=== PATIENT | male | born 1950 | race Caucasian/White ===

== ENCOUNTER 2022-03-01 18:14 | Emergency (ER) | payer MEDICARE ==
[2022-03-01] MEDS ORDERED: HYDROcod/ACETAM 5/325 MG TABLET PO STA (19:41)
--- NOTE | 2022-03-01 19:42 | ED Physician Documentation ---
History of Present Illness - Stated complaint Stated Complaint: LEFT LEG/SHOULDER INJURY - Chief complaint Chief Complaint: Trauma Ext - History obtained from History obtained from: Patient - Additonal information Additional information: 71-year-old gentleman around 9:00 this morning took a fall down 6 stairs at home. He landed on the left side and hurt his shoulder, hip, and lower leg. He is sure he did not hit his head. No head injury, headache, loss of consciousness. Mostly what hurts is the shoulder and lower extremity. He is up-to-date on tetanus. He presents with his of 46 years. Review of Systems Constitutional: reports: Reviewed and negative Eyes: reports: Reviewed and negative Throat: reports: Reviewed and negative Respiratory: reports: Reviewed and negative PD PAST MEDICAL HISTORY - Present Medications Home Medications: Ambulatory Orders Medication Instructions Recorded Confirmed Oxycodone HCl/Acetaminophen 1 - 2 each PO Q6H PRN #14 tablet 03/01/22 [Percocet 5-325 mg Tablet] - Allergies Allergies/Adverse Reactions: Allergies Allergy/AdvReac Type Severity Reaction Status Date / Time hydralazine Allergy Unknown Verified 03/01/22 18:36 NSAIDS (Non-Steroidal Allergy Unknown Verified 03/01/22 18:36 Anti-Inflamma oxytetracycline Allergy Unknown Verified 03/01/22 18:36 [From Terramycin] PD ED PE NORMAL - Vitals Vital signs reviewed: Yes - General General: Alert and oriented X 3, No acute distress - HEENT HEENT: PERRL, EOMI - Neck Neck: Supple, no meningeal sign, No bony TTP - Extremities Extremities: Other (There is a skin tear on the anterior left moreira with some local surrounding tenderness. The hip is nontender but he does have some pain with internal and external rotation. The shoulder has mild tenderness to the humeral head but relatively full range of motion for any acute injury.) - Neuro Neuro: Alert and oriented X 3, Normal speech Eye Opening: Spontaneous Motor: Obeys Commands Verbal: Oriented GCS Score: 15 Results - Vitals Vitals: Vital Signs - 24 hr 03/01/22 03/01/22 18:29 21:44 Temperature 36.7 C Heart Rate 84 76 Respiratory 16 16 Rate Blood Pressure 154/56 H 164/100 H O2 Saturation 94 97 Oxygen O2 Source Room air Procedures - Laceration (location) Left moreira Length in cm: 3 Wound type: Irregular, Flap, Superficial Wound preparation: Irrigated copiously NS Skin layer closure: Dermabond, Steri strips Other: Tetanus UTD PD MEDICAL DECISION MAKING - ED course ED course: 71-year-old gentleman with left-sided musculoskeletal injuries after a fall downstairs. Looks like he has a left humeral fracture and he is placed in a sling for same. X-rays of the lower extremity appeared negative. He had a skin tear on the left leg that was irrigated and repaired with Dermabond and Steri- Strips. Pain was difficult to control here and had no help with hydrocodone, had some improvement with IM Dilaudid. Sent home with a prepack for Percocet. He was able to ambulate here with some difficulty but only a minor limp and did not need an aid such as a walker. Subsequent to release overread of XR felt that humeral head trauma was old. Attempted to contact pt by phone, no no answer. Given that he is focally tender there, would not exchange trouble shooter as he would benefit from immobilization for comfort as already done with sling and f/o with ortho for reeval. Departure - Departure Disposition: 01 Home, Self Care Clinical Impression: Closed fracture of left proximal humerus Qualifiers: Encounter type: initial encounter Fracture morphology: other fracture Fracture alignment: nondisplaced Qualified Code(s): S42.295A - Other nondisplaced fracture of upper end of left humerus, initial encounter for closed fracture Strain of left hip Qualifiers: Encounter type: initial encounter Qualified Code(s): S76.012A - Strain of muscle, fascia and tendon of left hip, initial encounter Skin tear of left lower leg without complication Qualifiers: Encounter type: initial encounter Qualified Code(s): S81.812A - Laceration without foreign body, left lower leg, initial encounter Fall down stairs Qualifiers: Encounter type: initial encounter Qualified Code(s): W10.8XXA - Fall (on) (from) other stairs and steps, initial encounter Condition: Good Record reviewed to determine appropriate education?: Yes Instructions: Humerus Fx, ED Sprain Hip, ED Avulsion Dermal Prescriptions: Oxycodone HCl/Acetaminophen [Percocet 5-325 mg Tablet] 1 - 2 each PO Q6H PRN #14 tablet PRN Reason: pain Comments: As discussed, it looks like you have a fracture in the proximal humerus, I do not see any fractures in the hip or the lower leg. You should follow-up with an orthopedist on return home within the week. Take the copy of the x-ray on CD with you to that appointment. Return for new or worsening symptoms. Sent a prescription for painkillers to the [facility] pharmacy located at the corner of [address] [facility] [address] [facility] and [address] here in [place]. It is right next to the hospital. I am prescribing a short course of narcotic pain medication for you. These are potentially dangerous and addictive medications that should be used carefully. These medications may constipate you. Take an cysr-rrm-evzebng stool softener (docusate) twice daily with plenty of water while taking these medications. If you go 24 hours without a bowel movement, take zsnu-gtz-bdtodim miralax, per package instructions. Do not drink or drive while taking these medications. If you received narcotic or sedating medications while in the emergency department, do not drive for 24 hours. Store this medication in a safe, secure place and out of reach of children. It is a violation of federal law to give or sell this medication to another person or to use in a manner other than prescribed. The ED will not refill narcotic prescriptions, including prescriptions lost or stolen. To dispose of unwanted medications: 1. [facility] at [address] [place] [address] in [place] has a medication drop box. They accept prescription medications (in pill form) Tuesday through Tuesday 9:00 a.m. to 5:00 p.m. 2. The [facility] at [place] [employer] accepts prescription medications (in pill form only) for disposal year round. Call for more information. 3. Contact the [facility] for the next [facility] sponsored prescription drug collection event. , [phone], or [phone]; Note that many narcotic pain relievers also contain Tylenol/acetaminophen. Please ensure that your total dose of acetaminophen from all sources does not exceed 3 g (3000 mg) per day. Discharge Date/Time: 03/01/22 21:45
[2022-03-01] MEDS ORDERED: HYDROmorphone 1 MG/ML CARPUJECT IM STA (20:46)
[2022-03-01] MEDS ORDERED: oxyCODONE/ACET 5/325 Prepack 4 PO STA (21:20)
[2022-03-01 21:45] VITALS: BP 164/100
--- NOTE | 2022-03-01 22:04 | XRAY Report ---
PROCEDURE: Shoulder 3 View LT INDICATIONS: Pain after a fall TECHNIQUE: 3 views of the shoulder were acquired. COMPARISON: None. FINDINGS: Bones: There is deformity of the humeral head and neck consistent sequelae of a prior impacted fract ure. No definite acute fracture or dislocation. There is mild acromioclavicular joint degeneration. N o suspicious bony lesions. Visualized ribs appear intact. Soft tissues: No suspicious soft tissue calcifications. IMPRESSION: 1. Deformity of the left humeral head and neck consistent sequelae of a prior fracture. No definite a cute fracture or dislocation. Reviewed by: Nadir Crowley MD on 03/01/2022 10:03 PM PDT Approved by: Nadir Crowley MD on 03/01/2022 10:03 PM PDT Station ID: [id number]
--- NOTE | 2022-03-01 22:43 | XRAY Report ---
PROCEDURE: Tib/Fib LT INDICATIONS: Trauma TECHNIQUE: 2 views of the tibia and fibula were acquired. COMPARISON: None. FINDINGS: Bones: No fractures or dislocations. No suspicious bony lesions. Soft tissues: No suspicious soft tissue calcifications or masses. IMPRESSION: 1. No fracture or dislocation. Reviewed by: Nadir Crowley MD on 03/01/2022 10:42 PM PDT Approved by: Nadir Crowley MD on 03/01/2022 10:42 PM PDT Station ID: [id number]
--- NOTE | 2022-03-01 22:44 | XRAY Report ---
PROCEDURE: Hip w/Pelvis 2-3V LT INDICATIONS: hip inj TECHNIQUE: AP pelvis with lateral left hip. COMPARISON: None. FINDINGS: Bones: No fractures or dislocations. Pelvic ring appears intact. No suspicious bony lesions. Soft tissues: The visualized bowel gas pattern is normal. There are bilateral vascular calcification s. IMPRESSION: 1. No fracture or dislocation. Reviewed by: Nadir Crowley MD on 03/01/2022 10:43 PM PDT Approved by: Nadir Crowley MD on 03/01/2022 10:43 PM PDT Station ID: [id number]
== END 2022-03-01 21:45 | disposition home or self-care (01) ==
LOC: ED 18:14
DX: S42.295A Other nondisplaced fracture of upper end of left humerus, initial encounter for closed fracture (principal); S76.012A Strain of muscle, fascia and tendon of left hip, initial encounter; S81.812A Laceration without foreign body, left lower leg, initial encounter; W10.9XXA Fall (on) (from) unspecified stairs and steps, initial encounter; Y92.009 Unspecified place in unspecified non-institutional (private) residence as the place of occurrence of the external cause
CPT/HCPCS: 12002; 73030; 73502; 73590; 96372; 99284; A9270; J1170

== ENCOUNTER 2023-01-03 09:54 | Emergency (ER) | payer MEDICARE ==
[2023-01-03] MEDS ORDERED: HYDROmorphone 1 MG/ML CARPUJECT IM STA (11:46)
--- NOTE | 2023-01-03 11:49 | ED Physician Documentation ---
History of Present Illness - Stated complaint Stated Complaint: R HAND PAIN - Chief complaint Chief Complaint: Ext Problem - Additonal information Additional information: 72-year-old male presents emergency department for evaluation of acute on chronic right hand and wrist pain. Reports that this has been ongoing for a few years, cutely worsening over the last few months. He is scheduled to see a hand surgeon next week to discuss carpal tunnel surgery. The patient [place] [facility]. In review of his FAHEEM it appears that he is prescribed morphine 30 mg IR, pregabalin 75 mg, and gabapentin 800 mg for chronic pain concerns. He reports these medications are not touching his pain. Patient has had no falls or trauma. No fevers. No hand or wrist swelling or erythema. Review of Systems Constitutional: reports: Reviewed and negative Nose: reports: Reviewed and negative Cardiac: reports: Reviewed and negative Musculoskeletal: reports: Extremity pain PD PAST MEDICAL HISTORY - Past Medical History Past Medical History: Yes Musculoskeletal: Osteoarthritis - Past Surgical History Past Surgical History: Yes Ortho: Hip replacement, Shoulder arthroplasty, Spine surgery - Present Medications Home Medications: Ambulatory Orders Medication Instructions Recorded Confirmed Gabapentin [Neurontin] 800 mg PO TID 01/03/23 01/03/23 Morphine ER [Ms Contin] 30 mg PO Q12H 01/03/23 01/03/23 Pantoprazole [Protonix] 40 mg PO DAILY 01/03/23 01/03/23 Pregabalin [Lyrica] 75 mg PO HS 01/03/23 01/03/23 Tamsulosin [Flomax] 1 cap PO DAILY 01/03/23 01/03/23 - Allergies Allergies/Adverse Reactions: Allergies Allergy/AdvReac Type Severity Reaction Status Date / Time hydralazine Allergy Unknown Verified 01/03/23 10:14 NSAIDS (Non-Steroidal Allergy Unknown Verified 01/03/23 10:14 Anti-Inflamma oxytetracycline Allergy Unknown Verified 01/03/23 10:14 [From Terramycin] - Social History Does the pt smoke?: No Smoking Status: Never smoker Does the pt drink ETOH?: Yes Does the pt have substance abuse?: No - Immunizations Immunizations are current?: Yes PD ED PE EXPANDED - Extremities Extremities: Right hand (Neurovascularly intact. No swelling or erythema. 2+ radial pulse. Normal grasp and movement of the hand and fingers. 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 Positive Phalen's) Results - Vitals Vitals: Vital Signs - 24 hr 01/03/23 10:12 Temperature 36.0 C L Heart Rate 99 Respiratory 16 Rate Blood Pressure 183/86 H O2 Saturation 96 Oxygen O2 Source Room air PD Medical Decision Making - ED course Complexity details: d/w patient, d/w family ED course: 72-year-old male presents emergency department requesting analgesia for what appears to be acute on chronic right hand and wrist pain most consistent with c arpal tunnel syndrome. The patient and his partner at the bedside report that they are scheduled to see a hand surgeon next week to discuss a release surgery. In review of the patient's FAHEEM, Patient is already prescribed IR morphine, Lyrica as well as gabapentin which she reports is not addressing the pain adequately. Clinically there is nothing on history or exam to suggest occult fracture or infection. Given the patient's longstanding chronic pain history he is likely quite tolerant to most opioids and unfortunately the emergency department will not be able to address his acute on chronic pain issues. The patient bargained with this provider for 2 mg of Dilaudid. I acquiesced to administer 1 mg of Dilaudid IM with the understanding that we would not prescribe anything upon discharge and that it was important he continue to follow closely with his hand surgeon to determine if they could schedule him sooner for evaluation. Departure - Departure Disposition: 01 Home, Self Care Clinical Impression: Carpal tunnel syndrome on right Condition: Stable Record reviewed to determine appropriate education?: Yes Comments: Rm I wish you well in your journey. Unfortunately the emergency department can not do more to manage your carpal tunnel pain. We cannot prescribe anything above and beyond what has already been prescribed for you as an outpatient. It is important that you continue to wear your cock up splint especially at night. I encourage you to call your hand surgeon to discuss if you can be seen sooner for earlier evaluation.
[2023-01-03 12:00] VITALS: BP 174/87
== END 2023-01-03 12:00 | disposition home or self-care (01) ==
LOC: ED 09:54
DX: G56.01 Carpal tunnel syndrome, right upper limb (principal)
CPT/HCPCS: 96372; 99283; J1170

== ENCOUNTER 2023-02-05 09:20 | Outpatient (CLI) | payer MEDICARE | END 2023-02-05 09:21 | disposition short-term general hospital (02) | LOC: EMS 09:20 | DX: I46.9 Cardiac arrest, cause unspecified (principal) | CPT/HCPCS: A0425; A0433 ==